=== PATIENT | male | born 1995 | race Caucasian/White ===

== ENCOUNTER 2016-09-05 20:24 | Emergency (ER) | payer MEDICAID, OTHER ==
[~2016-09-05] VITALS: Ht 180.3 cm; Wt 84.0 kg
[2016-09-06] MEDS ORDERED: BACITRACIN ZINC OINT UDPKT TOP ONE (00:30)
[2016-09-06] MEDS ORDERED: LIDOCAINE HCL 1% 20ML VIAL (Pyxis) INJ MC ONE (00:30)
[2016-09-06] MEDS ORDERED: KETOROLAC 60MG/2ML VIAL IM ONE (00:30)
[2016-09-06 01:39] VITALS: BP 135/75
[2016-09-06] MEDS ORDERED: HYDROCODONE/ACETAMINOPHEN 5/325MG TABLET PO ONE (02:00)
== END 2016-09-06 02:44 | disposition home or self-care (01) ==
LOC: ER 09-06 00:15
DX: L60.0 Ingrowing nail (principal)
CPT/HCPCS: 11750; 96372; 99284; J1885; J3490; X7700; Z7610

== ENCOUNTER 2017-03-31 09:51 | Emergency (ER) | payer MEDICAID ==
[~2017-03-31] VITALS: Ht 180.3 cm; Wt 82.0 kg
[2017-03-31] MEDS ORDERED: LIDOCAINE HCL 1% 20ML VIAL (Pyxis) INJ MC ONE (14:30)
[2017-03-31] MEDS ORDERED: BACITRACIN ZINC OINT UDPKT TOP ONE (14:30)
[2017-03-31 17:00] VITALS: BP 116/62
== END 2017-03-31 17:17 | disposition home or self-care (01) ==
LOC: ER 10:34
DX: L60.0 Ingrowing nail (principal)
CPT/HCPCS: 11730; 99283; J3490; Z7610; 11750; 99284

== ENCOUNTER 2020-04-13 20:22 | Emergency (ER) | payer MEDICAID ==
[~2020-04-13] VITALS: Ht 180.3 cm; Wt 100.0 kg
[2020-04-13] MEDS ORDERED: IBUPROFEN 600MG TABLET PO STA (20:46)
[2020-04-13] MEDS ORDERED: ACETAMINOPHEN 325MG TABLET PO STA (20:46)
[2020-04-13 23:09] VITALS: BP 119/79
== END 2020-04-13 23:10 | disposition home or self-care (01) ==
LOC: ER 20:22
DX: B34.9 Viral infection, unspecified (principal); M25.511 Pain in right shoulder; Z03.818 Encounter for observation for suspected exposure to other biological agents ruled out
CPT/HCPCS: 71045; 73030; 87635; 99284